=== PATIENT | male | born 1965 | race Caucasian/White ===

== ENCOUNTER 2022-05-13 20:53 | Emergency (ER) | payer MEDICAID ==
[2022-05-13] MEDS ORDERED: Ketorolac 30 MG/ML SDV IVPUSH ONE (21:42)
[2022-05-13] MEDS ORDERED: Amoxicillin 500 MG Cap PO ONE (21:43)
[2022-05-13] MEDS ORDERED: Acetaminophen 325 MG Tab PO ONE (21:43)
== END 2022-05-13 22:36 | disposition home or self-care (01) ==
LOC: JD.ED 20:53
DX: S61.210A Laceration without foreign body of right index finger without damage to nail, initial encounter (principal); F10.129 Alcohol abuse with intoxication, unspecified; W26.8XXA Contact with other sharp object(s), not elsewhere classified, initial encounter
CPT/HCPCS: 96374; 99283; A9270; J1885; 99284

== ENCOUNTER 2024-07-16 10:56 | Emergency (ER) | payer SELFPAY ==
[2024-07-16] MEDS: Ketorolac 60 MG/2 ML SDV IM ONE (11:43)
== END 2024-07-16 12:25 | disposition home or self-care (01) ==
LOC: JD.ED 10:56
DX: S89.92XA Unspecified injury of left lower leg, initial encounter (principal); X50.1XXA Overexertion from prolonged static or awkward postures, initial encounter; Y93.01 Activity, walking, marching and hiking
CPT/HCPCS: 73564; 96372; 99283; J1885; 99282